=== PATIENT | female | born 1965 | race Caucasian/White ===

== ENCOUNTER 2017-01-05 09:28 | Inpatient (IN) | payer MEDICARE, MEDICAID ==
[~2017-01-05 09:28] MED LIST: ALEVE220 MG; ATORVASTATIN CA20 M1 PO; ATORVASTATIN CA20 MG PO; BACTRIM DS TAB1 EAC1 PO; CLINDAMYCIN HC150 MG; CLINDAMYCIN HC300 M2 PO; CULTURELLE1 EAC1 PO; DIABETA5 M1 PO; DIFLUCAN50 MG; FLEXERIL10 MG; FUROSEMIDE40 MG; GLIPIZIDE5 MG PO; GLYBURIDE5 M1 PO; GLYBURIDE5 MG PO; HUMALOG100 UNITS/ SC; LANTUS SOLOSTAR3 ML SQ; LANTUS100 U/ML SC; LANTUS100 UNITS/ SC; LASIX20 MG; LEVAQUIN750 MG PO; LIPITOR20 MG PO; LISINOPRIL2.5 MG PO; MILK OF MAGNESIA PO; MIRALAX17 G2 PO; NOVOLOG100 UNITS/ SC; PRINIVIL5 M1 PO; SILVADENE20 GM TP; SSD TOP; SSD25 GM TP; SULFAMETHOXAZOLE; SULFAMYLON TOP; SULFAMYLON453.6 GM TP; SULFAMYLON60 GM EXT; TYLENOL325 M2 PO; TYLENOL325 MG PO; ULTRACET1 TAB PO; ULTRAM50 MG PO
[2017-01-05] MEDS ORDERED: RISPERDAL0.25 M2 PO (09:34)
[2017-01-05] MEDS ORDERED: GLIPIZIDE ER5 MG PO (09:34)
[2017-01-05 10:02] LABS: BASO % 0.1 % (0-2); EOS % 0.4 % (0-7); HCT-HEMATOCRIT 40.5 % (34.0-49.0); HGB-HEMOGLOBIN 13.8 gm/dl (12.0-15.5); IMMATURE GRANULOCYTES ABSOLUTE 0.02 tho/cmm (0-0.03); IMMATURE GRANULOCYTES PERCENT 0.2 % (0-0.3); LYMPH % 14.5 % (20-45); LYMPH ABSOLUTE COUNT 1.2 tho/cmm (0.8-4.5); MCH (MEAN CORPUSCULAR HGB) 30.9 pg (28.0-32.0); MCHC MEAN CORPUSCULAR HGB CONC 34.1 % (32.0-36.0); MCV (MEAN CELL VOLUME) 90.6 fl (82.0-96.0); MEAN PLATELET VOLUME 10.2 cmc (9.4-12.4); MONO % 8.5 % (0-12); MONOCYTE ABSOLUTE COUNT 0.7 tho/cmm (0.0-1.2); NEUTROPHIL ABSOLUTE COUNT 6.2 tho/cmm (1.6-8.0); NEUTROPHIL-AUTOMATED 6.2 tho/cmm (1.6-8.0); NEUTROPHILS % 76.3 % (40-80); PLATELET COUNT 218 tho/cmm (150-450); RED BLOOD COUNT 4.47 mil/cmm (4.00-5.20); RED CELL DISTRIBUTION WIDTH 12.9 % (12.4-16.4); WHITE BLOOD COUNT 8.1 tho/cmm (4.0-10.0)
[2017-01-05] MEDS ORDERED: POTASSIUM CHLO10 ME2 PO (10:09)
[2017-01-05] MEDS ORDERED: VITAMIN D32000 UNI2 PO (10:11)
[2017-01-05] MEDS ORDERED: LASIX40 M1 PO (10:11)
[2017-01-05 10:37] LABS: ALB/GLOB RATIO 0.5 (0.8-2.0); ALBUMIN 2.6 g/dl (3.5-5.0); ALKALINE PHOSPHATASE 117 U/L (33-138); ALT/SGPT 29 U/L (12-78); BILIRUBIN,TOTAL 1.8 mg/dl (0-1.5); BLOOD UREA NITROGEN 25 mg/dl (6-24); CALCIUM 9.5 mg/dl (8.5-10.5); CARBON DIOXIDE-VENOUS 23 mmol/L (22-32); CHLORIDE 105 mmol/l (96-110); CREATININE 1.65 mg/dl (0.50-1.10); GLUCOSE 161 mg/dL (70-110); SODIUM 138 mmol/L (135-145); eGFR VALUE FOR BLACK 42 mL/Min
[2017-01-05 10:40] LABS: ANION GAP 14 mmol/L (0-20); AST/SGOT 27 U/L (10-40); C-REACTIVE PROTEIN 18.6 mg/dl (0-0.9); POTASSIUM 3.9 mmol/L (3.7-5.1)
[2017-01-05 10:42] LABS: URINE APPEARANCE CLOUDY; URINE BILIRUBIN NEGATIVE (NEG); URINE BLOOD LARGE (NEG); URINE COLOR BROWN; URINE GLUCOSE (UA) NEGATIVE (NEG); URINE KETONE NEGATIVE (NEG); URINE LEUKOCYTE ESTERASE POSITIVE (NEG); URINE NITRITE NEGATIVE (NEG); URINE PROTEIN MODERATE (NEG); URINE SPECIFIC GRAVITY 1.015 (1.003-1.030)
[2017-01-05 10:52] LABS: URINE AMORPHOUS 3+; URINE RBC 50-60 /[HPF] (0-5)
[2017-01-05 10:53] LABS: URINE BACTERIA 1+; URINE EPITHELIAL CELLS 0-2 /[HPF] (0-10)
[2017-01-06 06:07] LABS: BASO % 0.1 % (0-2); EOS % 0.3 % (0-7); HCT-HEMATOCRIT 37.8 % (34.0-49.0); HGB-HEMOGLOBIN 12.7 gm/dl (12.0-15.5); IMMATURE GRANULOCYTES ABSOLUTE 0.02 tho/cmm (0-0.03); IMMATURE GRANULOCYTES PERCENT 0.2 % (0-0.3); LYMPH % 12.6 % (20-45); LYMPH ABSOLUTE COUNT 1.3 tho/cmm (0.8-4.5); MCH (MEAN CORPUSCULAR HGB) 30.5 pg (28.0-32.0); MCHC MEAN CORPUSCULAR HGB CONC 33.6 % (32.0-36.0); MCV (MEAN CELL VOLUME) 90.6 fl (82.0-96.0); MEAN PLATELET VOLUME 10.3 cmc (9.4-12.4); MONO % 9.7 % (0-12); NEUTROPHIL ABSOLUTE COUNT 7.7 tho/cmm (1.6-8.0); NEUTROPHIL-AUTOMATED 7.7 tho/cmm (1.6-8.0); NEUTROPHILS % 77.1 % (40-80); PLATELET COUNT 209 tho/cmm (150-450); RED BLOOD COUNT 4.17 mil/cmm (4.00-5.20); RED CELL DISTRIBUTION WIDTH 12.9 % (12.4-16.4); WHITE BLOOD COUNT 9.9 tho/cmm (4.0-10.0)
[2017-01-06 06:19] LABS: ALB/GLOB RATIO 0.4 (0.8-2.0); ALBUMIN 2.2 g/dl (3.5-5.0); ALKALINE PHOSPHATASE 133 U/L (33-138); ALT/SGPT 33 U/L (12-78); ANION GAP 16 mmol/L (0-20); BILIRUBIN,TOTAL 1.8 mg/dl (0-1.5); BLOOD UREA NITROGEN 20 mg/dl (6-24); C-REACTIVE PROTEIN 17.6 mg/dl (0-0.9); CALCIUM 8.9 mg/dl (8.5-10.5); CARBON DIOXIDE-VENOUS 21 mmol/L (22-32); CHLORIDE 109 mmol/l (96-110); CREATININE 1.47 mg/dl (0.50-1.10); GLUCOSE 166 mg/dL (70-110); POTASSIUM 3.9 mmol/L (3.7-5.1); SODIUM 142 mmol/L (135-145); eGFR VALUE FOR BLACK 48 mL/Min
[2017-01-06 06:37] LABS: AST/SGOT 44 U/L (10-40)
[2017-01-07 07:19] LABS: HGB-HEMOGLOBIN 12.8 gm/dl (12.0-15.5); PLATELET COUNT 204 tho/cmm (150-450)
[2017-01-07 07:31] LABS: ANION GAP 17 mmol/L (0-20); BLOOD UREA NITROGEN 17 mg/dl (6-24); CALCIUM 9.2 mg/dl (8.5-10.5); CARBON DIOXIDE-VENOUS 23 mmol/L (22-32); CHLORIDE 106 mmol/l (96-110); CREATININE 1.52 mg/dl (0.50-1.10); GLUCOSE 160 mg/dL (70-110); SODIUM 142 mmol/L (135-145); eGFR VALUE FOR BLACK 46 mL/Min
[2017-01-07 07:32] LABS: POTASSIUM 3.9 mmol/L (3.7-5.1)
[2017-01-07 19:33] LABS: URINE BILIRUBIN NEGATIVE (NEG); URINE BLOOD LARGE (NEG); URINE GLUCOSE (UA) MODERATE (NEG); URINE KETONE SMALL (NEG); URINE LEUKOCYTE ESTERASE POSITIVE (NEG); URINE NITRITE POSITIVE (NEG); URINE PROTEIN LARGE (NEG)
[2017-01-07 19:34] LABS: URINE APPEARANCE CLOUDY; URINE COLOR BROWN
[2017-01-07 19:41] LABS: URINE AMORPHOUS 1+; URINE RBC 15-20 /[HPF] (0-5)
[2017-04-06] MEDS ORDERED: LANTUS100 UNITS/ SC ×2 (12:27→12:28)
[2017-04-06] MEDS ORDERED: LACTINEX CHEWA1 EAC1 PO (12:27)
[2017-04-06] MEDS ORDERED: METOLAZONE2.5 M1 PO (12:29)
[2017-04-06] MEDS ORDERED: THERA-M CAPLET1 EAC1 PO (12:30)
[2017-04-06] MEDS ORDERED: NOVOLOG100 UNITS/ SC (12:32)
== END 2017-01-08 16:20 | DRG 872 ==
LOC: EDMED 09:28 → EMR2 12:16 → 5WE 14:15
PROVIDERS: Emergency Medicine; Family Medicine; ADMIT Family Medicine
PROC: 05H533Z Insertion of Infusion Device into Right Subclavian Vein, Percutaneous Approach (ICD-10-PCS; principal; 2017-01-08)
DX: A41.9 Sepsis, unspecified organism (principal); N17.9 Acute kidney failure, unspecified; E44.0 Moderate protein-calorie malnutrition; E11.22 Type 2 diabetes mellitus with diabetic chronic kidney disease; N18.3 Chronic kidney disease, stage 3 (moderate); L03.116 Cellulitis of left lower limb; L03.115 Cellulitis of right lower limb; N39.0 Urinary tract infection, site not specified; Z68.45 Body mass index [BMI] 70 or greater, adult; E86.0 Dehydration; R31.9 Hematuria, unspecified; Z79.4 Long term (current) use of insulin; E66.01 Morbid (severe) obesity due to excess calories; I89.0 Lymphedema, not elsewhere classified; Z86.14 Personal history of Methicillin resistant Staphylococcus aureus infection; I12.9 Hypertensive chronic kidney disease with stage 1 through stage 4 chronic kidney disease, or unspecified chronic kidney disease; Z91.19 Patient's noncompliance with other medical treatment and regimen; Z88.0 Allergy status to penicillin; Z88.7 Allergy status to serum and vaccine; I34.0 Nonrheumatic mitral (valve) insufficiency; Z91.012 Allergy to eggs; S81.801A Unspecified open wound, right lower leg, initial encounter
CPT/HCPCS: C1751; G8978-GO-CK; G8978-GP-CK; G8979-GO-CK; G8979-GP-CJ; J0692; J1650; J1815; J2543; J3370; J7030; P9612